=== PATIENT | male | born 1995 | race Caucasian/White ===

== ENCOUNTER → 2020-03-26 | Emergency (ER) | payer OTHER ==
[~2020-03-26] VITALS: Ht 179 cm; Wt 77.0 kg
[~2020-03-26] MED LIST: LACTATED RINGERS 1,000 ML IV ONE; NS IV 1000 ML 1,000 ML ONE
[2020-03-26 02:21] VITALS: BP 167/95
--- NOTE | 2020-03-26 02:25 | NUR ---
C COLLAR APPLIED BY
[2020-03-26 02:42] LABS: BASOPHILS # (AUTO) 0.1 10^3/uL (0.0-0.1); BASOPHILS % (AUTO) 1 % (0-10); EOSINOPHILS # (AUTO) 0.1 10^3/uL (0.0-0.3); EOSINOPHILS % (AUTO) 3 % (0-10); HEMATOCRIT 42 % (40-54); HEMOGLOBIN 14.2 g/dL (13.3-17.7); LYMPHOCYTES # (AUTO) 2.3 10^3/uL (1.0-4.0); LYMPHOCYTES % (AUTO) 45 % (12-44); MEAN CORPUSCULAR HEMOGLOBIN 31 pg (25-34); MEAN CORPUSCULAR HGB CONC 34 g/dL (32-36); MEAN CORPUSCULAR VOLUME 91 fL (80-99); MEAN PLATELET VOLUME 10.9 fL (9.0-12.2); MONOCYTES # (AUTO) 0.5 10^3/uL (0.0-1.0); MONOCYTES % (AUTO) 9 % (0-12); NEUTROPHILS # (AUTO) 2.2 10^3/uL (1.8-7.8); NEUTROPHILS % (AUTO) 43 % (42-75); PLATELET COUNT 219 10^3/uL (130-400); WHITE BLOOD COUNT 5.1 10^3/uL (4.3-11.0)
[2020-03-26 02:47] LABS: ALBUMIN 4.9 GM/DL (3.2-4.5); CHLORIDE 105 MMOL/L (98-107); POTASSIUM 3.3 MMOL/L (3.6-5.0); SODIUM 141 MMOL/L (135-145)
[2020-03-26 02:49] LABS: CALCIUM 8.8 MG/DL (8.5-10.1)
[2020-03-26 02:50] LABS: GLUCOSE 96 MG/DL (70-105); TOTAL PROTEIN 8.1 GM/DL (6.4-8.2)
[2020-03-26 02:51] LABS: CARBON DIOXIDE 17 MMOL/L (21-32)
[2020-03-26 02:52] LABS: BILIRUBIN,TOTAL 0.5 MG/DL (0.1-1.0)
[2020-03-26 02:53] LABS: ALKALINE PHOSPHATASE 54 U/L (40-136)
[2020-03-26 02:54] LABS: CREATININE SERUM 1.02 MG/DL (0.60-1.30); GFR ESTIMATED > 60
[2020-03-26 02:55] LABS: BUN/CREATININE RATIO 13
[2020-03-26 02:56] LABS: ALANINE AMINOTRANSFERASE 46 U/L (0-55)
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
== END ==
LOC: ER 02:16
DX: S01.01XA Laceration without foreign body of scalp, initial encounter (principal); R40.2410 Glasgow coma scale score 13-15, unspecified time; F10.10 Alcohol abuse, uncomplicated; Y04.8XXA Assault by other bodily force, initial encounter
CPT/HCPCS: 80053; 85025; 99284; G0480; 36415; 80320

== ENCOUNTER 2021-06-26 12:23 | Emergency (ER) | payer OTHER ==
[~2021-06-26] VITALS: Ht 177 cm; Wt 77.0 kg
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
[2021-06-26 13:07] LABS: BILIRUBIN,URINE NEGATIVE (NEGATIVE); CLARITY,URINE CLEAR; COLOR,URINE YELLOW; GLUCOSE, URINE (UA) NEGATIVE (NEGATIVE); KETONES,URINE NEGATIVE (NEGATIVE); LEUKOCYTE ESTERASE ,URINE NEGATIVE (NEGATIVE); NITRITE,URINE NEGATIVE (NEGATIVE); PH,URINE 5.5 (5-9); PROTEIN,URINE NEGATIVE (NEGATIVE)
--- NOTE | 2021-06-26 13:08 | Diagnostic Imaging Report ---
INDICATION: Chest pain. FINDINGS: The lungs are clear although hyperexpanded. No failure, effusion, or pneumothorax. IMPRESSION: Clear hyperexpanded lungs; otherwise, negative. Dictated by: Dictated on workstation # [id number]
[2021-06-26 13:09] LABS: BASOPHILS % (AUTO) 1 % (0-10); EOSINOPHILS # (AUTO) 0.1 10^3/uL (0.0-0.3); EOSINOPHILS % (AUTO) 2 % (0-10); HEMATOCRIT 42 % (40-54); HEMOGLOBIN 14.8 g/dL (13.3-17.7); LYMPHOCYTES # (AUTO) 2.2 10^3/uL (1.0-4.0); LYMPHOCYTES % (AUTO) 51 % (12-44); MEAN CORPUSCULAR HEMOGLOBIN 31 pg (25-34); MEAN CORPUSCULAR HGB CONC 35 g/dL (32-36); MEAN CORPUSCULAR VOLUME 87 fL (80-99); MEAN PLATELET VOLUME 10.9 fL (9.0-12.2); MONOCYTES # (AUTO) 0.4 10^3/uL (0.0-1.0); MONOCYTES % (AUTO) 10 % (0-12); NEUTROPHILS # (AUTO) 1.5 10^3/uL (1.8-7.8); NEUTROPHILS % (AUTO) 35 % (42-75); PLATELET COUNT 177 10^3/uL (130-400); WHITE BLOOD COUNT 4.2 10^3/uL (4.3-11.0)
[2021-06-26 13:28] LABS: PROTHROMBIN TIME PATIENT 13.5 SEC (12.2-14.7)
[2021-06-26 13:31] LABS: BACTERIA,URINE NEGATIVE /HPF; SQUAMOUS EPITHELIAL CELL,UR RARE /HPF
[2021-06-26 13:32] LABS: AMPHETAMINE SCREEN, URINE NEGATIVE (NEGATIVE); BARBITURATE SCREEN URINE NEGATIVE (NEGATIVE); BENZODIAZEPINES SCREEN URINE NEGATIVE (NEGATIVE); CANNABINOID SCREEN, URINE NEGATIVE (NEGATIVE); COCAINE SCREEN URINE NEGATIVE (NEGATIVE); METHADONE STAT NEGATIVE (NEGATIVE); METHAMPHETAMINE SCREEN URINE S NEGATIVE (NEGATIVE); OPIATE SCREEN URINE NEGATIVE (NEGATIVE); OXYCODONE STAT NEGATIVE (NEGATIVE); PROPOXYPHENE STAT NEGATIVE (NEGATIVE); TRICYCLIC ANTIDEPRESSANTS SCRE NEGATIVE (NEGATIVE)
[2021-06-26 13:38] LABS: CHLORIDE 103 MMOL/L (98-107); POTASSIUM 3.5 MMOL/L (3.6-5.0); SODIUM 142 MMOL/L (135-145)
[2021-06-26 13:39] LABS: ALANINE AMINOTRANSFERASE 27 U/L (0-55); ALBUMIN 5.1 GM/DL (3.2-4.5); ALKALINE PHOSPHATASE 61 U/L (40-136); BUN/CREATININE RATIO 16; CALCIUM 9.3 MG/DL (8.5-10.1); CARBON DIOXIDE 25 MMOL/L (21-32); CREATININE SERUM 0.95 MG/DL (0.60-1.30); GFR ESTIMATED 115; GLUCOSE 70 MG/DL (70-105); MAGNESIUM 2.1 MG/DL (1.6-2.4); TOTAL PROTEIN 7.8 GM/DL (6.4-8.2)
[2021-06-26] MEDS ORDERED: ASPIRIN 81 MG CHEW (CHILDREN'S ASA) PO ONE (14:00)
[2021-06-26 15:17] VITALS: BP 143/85
== END 2021-06-26 15:00 | disposition home or self-care (01) ==
LOC: EDUNIT# 12:23 → ER FS 12:24
DX: I49.3 Ventricular premature depolarization (principal); R07.9 Chest pain, unspecified
CPT/HCPCS: 36415; 71045; 80053; 80306; 81000; 83735; 84484; 85025; 85379; 85610; 85730; 93005